=== PATIENT | male | born 2000 | race Caucasian/White ===

== ENCOUNTER 2019-10-17 13:34 | Emergency (ER) | payer OTHER, SELFPAY ==
[2019-10-17 13:55] VITALS: BP 123/70; PULSE 82; RESP 21; TEMP 37.1; O2SAT 100
--- NOTE | 2019-10-17 15:00 | ED.GENADULT ---
HPI - General Adult General Chief complaint: Upper Respiratory Infection Stated complaint: sinus congestion Time Seen by Provider: 10/17/19 14:50 Source: patient and RN notes reviewed Mode of arrival: ambulatory Limitations: no limitations History of Present Illness HPI narrative: 19-year-old male complains of upper respiratory infection and sore throat for the past 8-9 days. Increase symptoms over the past 4 days with facial congestion, facial pain, swollen submandibular lymph nodes, and intermittent headaches (not the worst of his life) for the past 4 days. Tylenol without relief. No facial swelling. Denies cough. Rhinorrhea and nasal congestion. Sore throat. Pain bilateral. No pain with swallowing. No voice changes. No high fevers, drooling, neck or throat swelling. No chest pain or shortness of breath. No exacerbation factors. Denies nausea, vomiting, and abdominal pain. Tolerating liquids well. Some parts of this dictation were generated by voice recognition software and may contain typographical and/or grammatical inaccuracies. Related Data Home Medications Medication Instructions Recorded Confirmed No Home Medications 10/17/19 10/17/19 Allergies Allergy/AdvReac Type Severity Reaction Status Date / Time amoxicillin Allergy Hives Verified 10/17/19 14:00 Review of Systems Review of Systems: Narrative: CONSTITUTIONAL: Denies fever, chills, sweats. EYES: Denies visual changes, redness, discharge. ENT: Complains of rhinorrhea, congestion, facial congestion and pain, sore throat. Denies otalgia. CARDIOVASCULAR: Denies chest pain, palpitations, edema. RESPIRATORY: Denies dyspnea, wheezing, cough. GASTROINTESTINAL: Denies abdominal pain, nausea, vomiting, diarrhea. GENITOURINARY: Denies dysuria, hematuria, abnormal discharge. SKIN: Denies rash or itching. MUSCULOSKELETAL: Denies acute back pain, joint pain, or myalgia. NEUROLOGIC: Denies numbness or focal weakness. Complains of intermittent BERG. PSYCHIATRIC: Denies anxiety or depression. All systems reviewed & are unremarkable except as noted in HPI and below. [facility] Past Medical History Medical History (Updated 10/18/19 @ 00:00 by Júnior Chávez) No significant past medical history Surgical History Surgical History (Updated 10/17/19 @ 15:01 by GABINO Munoz) No significant past surgical history Family History Family History (Updated 10/17/19 @ 15:02 by GABINO Munoz) Other No significant family history Social History Social History (Updated 10/17/19 @ 15:02 by GABINO Munoz) Smoking status: Never smoker Alcohol intake: current Alcohol use details: Occasional Substance use: never Living arrangements: with family Occupation/Education: student Gender identity (if verbalized by the patient): Male Comments At time of signature, agree with nurse past medical, surgical, social, and family history. There is no relevant family history pertinent to the presenting complaint. Exam Narrative: Exam Narrative: GENERAL: This is a well-nourished, well-developed patient, in no apparent distress. Talks in full sentences and ambulates with steady gait without dyspnea. HEAD: normocephalic, atraumatic. EYES: PERRL. Sclera clear/white. Vision is grossly intact. EARS: External ears normal, auditory canals clear and without drainage, TMs normal without perforation. Hearing grossly intact. NOSE: External nose normal with no obvious nasal discharge, nares with mild-moderate redness and enlarge turbinates, LT worse. No rhinorrhea. SINUSES: Mild-moderate tenderness upon palpation to maxillary and frontal sinuses. THROAT: Mucous membranes moist, posterior pharynx with PND, mild erythema exudate, normal tonsils, no drainage, no concern for Peritonsillar abscess. No drooling, trismus, or neck swelling. NECK: Neck supple, non-tender without lymphadenopathy, masses or thyromegaly. CARDIOVASCULAR: Regular rate and
== END 2019-10-17 15:11 | disposition home or self-care (01) ==
PROVIDERS: Emergency Provider Nurse Practitioner Family; PCP Family Medicine
DX: J32.9 Chronic sinusitis, unspecified (principal)
CPT/HCPCS: 99203; G0463